=== PATIENT | male | born 1985 ===

== ENCOUNTER 2021-05-01 21:23 | Emergency (ER) | payer MEDICAID ==
[~2021-05-01] VITALS: Ht 177.8 cm; Wt 81.8 kg
[2021-05-01] MEDS ORDERED: LIDOCAINE-MPF 1%, 5ML ONE (22:59)
[2021-05-01 23:01] VITALS: BP 153/85
--- NOTE | 2021-05-02 00:51 | NUR ---
REPORT RECEIVED FROM LILY MCCORD
--- NOTE | 2021-05-02 01:14 | NUR ---
PT LAYING IN BED, A/OX3, ALL NEEDS IN REACH, CALL LIGHT IN REACH, PT IN CUSTODY SO OFFICER AT BEDSIDE AND PT IN CUFFS AND SHAKLES
[2021-05-02] MEDS ORDERED: IBUPROFEN 800 MG TABLET ONE (01:48)
[2021-05-02] MEDS ORDERED: IBUPROFEN 800 MG TABLET PO ONE (02:00)
== END 2021-05-02 02:38 | disposition home or self-care (01) ==
LOC: ED 23:59
DX: L03.113 Cellulitis of right upper limb (principal); M25.511 Pain in right shoulder; F17.210 Nicotine dependence, cigarettes, uncomplicated; F12.10 Cannabis abuse, uncomplicated; F15.10 Other stimulant abuse, uncomplicated; Z72.9 Problem related to lifestyle, unspecified
CPT/HCPCS: 10060; 99406